=== PATIENT | female | born 2000 | race Hispanic/Latino ===

== ENCOUNTER 2022-06-16 17:44 | Emergency (ER) | payer OTHER | END 2022-06-16 18:38 | disposition home or self-care (01) | LOC: CSHERS 17:44 | DX: H66.91 Otitis media, unspecified, right ear (principal) | CPT/HCPCS: 99282 ==

== ENCOUNTER 2022-07-23 04:57 | Inpatient (IN) | payer OTHER ==
[2022-07-23] MEDS ORDERED: hydrALAZINE 20 MG/ML VIAL SLOW IVP PRN ×2 (05:07→10:07)
[2022-07-23] MEDS ORDERED: Bicitra 30 ML UDCUP PO PRN (05:07)
[2022-07-23] MEDS ORDERED: Promethazine HCl 25 MG/ML VIAL IM PRN ×3 (05:07→10:07)
[2022-07-23] MEDS ORDERED: Famotidine/PF 20 mg/2ml Vial SLOW IVP PRN (05:07)
[2022-07-23] MEDS ORDERED: Ondansetron PF 4 MG/2 ML Vial IVP PRN ×3 (05:07→10:07)
[2022-07-23] MEDS ORDERED: CEFAZOLIN 2 GM in Sodium Chloride 0.9% 100 ML IVPB SCH (05:07)
[2022-07-23] MEDS ORDERED: Lactated Ringer's 1,000 ML IV SCH (05:07)
[2022-07-23 05:33] VITALS: BMI 41.8
[2022-07-23 06:16] LABS: SARS-CoV-2 NAA Rapid Test Not Detected (NotDetected)
[2022-07-23 06:17] LABS: Hemoglobin 9.8 g/dL (12.0-15.5); Mean Corpuscular HGB CONC 32.1 g/dL (32.0-36.0); Mean Corpuscular Hemoglobin 24.9 pg (27.0-33.0); Mean Corpuscular Volume 77.4 fl (81.6-98.3); Mean Platelet Volume 10.1 fl (7.4-10.4); Platelet Count 302 10x3/uL (150-450); RBC Distribution Width 14.2 % (11.5-14.5); Red Blood Cell (RBC) Count 3.94 10x6/uL (3.90-5.03); White Blood Cell (WBC) Count 9.8 10x3/uL (3.5-10.5)
[2022-07-23 06:50] LABS: Syphilis Antibody Nonreactive (Nonreactive); Syphilis Antibody Index 0.04 S/CO (<1.00 Non-Reactive)
[2022-07-23] MEDS ORDERED: HYDROmorphone 2 MG/ML VIAL SLOW IVP PRN (06:50)
[2022-07-23] MEDS ORDERED: Naloxone HCl 0.4 mg/ml Vial IVP PRN ×2 (06:50)
[2022-07-23] MEDS ORDERED: Naloxone HCl 0.4 mg/ml Vial IV PRN (06:50)
[2022-07-23] MEDS ORDERED: Fentanyl 100 MCG/2 ML VIAL SLOW IVP PRN (06:50)
[2022-07-23] MEDS ORDERED: Moisturizing Cream (Eucerin) 113 GM JAR TOP PRN (06:50)
[2022-07-23] MEDS ORDERED: Promethazine HCl 25 MG SUPP PR PRN (06:50)
[2022-07-23] MEDS ORDERED: Ondansetron HCl/PF 4 MG/2 ML Vial IVP PRN (06:50)
[2022-07-23] MEDS ORDERED: Meperidine HCl/PF 25 MG/ML VIAL SLOW IVP PRN (06:50)
[2022-07-23] MEDS ORDERED: diphenhydrAMINE 50 MG/ML VIAL IVP PRN (06:50)
[2022-07-23] MEDS ORDERED: Ketorolac Tromethamine 30 MG/ML VIAL IVP PRN (06:50)
[2022-07-23 06:52] LABS: HBSAg Index 0.16 S/CO (0-0.99); Hep B Surf Ag Non-Reactive S/CO (NonReactive)
[2022-07-23] MEDS ORDERED: Fentanyl 100 MCG/2 ML VIAL ONE (06:53)
[2022-07-23] MEDS ORDERED: Morphine PF 10 MG/10 ML VIAL ONE (06:53)
[2022-07-23] MEDS ORDERED: Phenylephrine 10 MG/ML VIAL ONE (06:53)
[2022-07-23] MEDS ORDERED: Dexamethasone 4 mg/ml Vial ONE (06:53)
[2022-07-23] MEDS ORDERED: Ondansetron PF 4 MG/2 ML Vial ONE (06:53)
[2022-07-23] MEDS ORDERED: Oxytocin 10 UNITS/ML VIAL ONE ×2 (06:54→08:43)
[2022-07-23] MEDS ORDERED: Communication Order-Pharmacy FS SCH (07:00)
[2022-07-23] MEDS ORDERED: Ketorolac Tromethamine 30 MG/ML VIAL IVP SCH (07:00)
[2022-07-23] MEDS ORDERED: Ketorolac Tromethamine 30 MG/ML VIAL ONE (08:39)
[2022-07-23] MEDS ORDERED: Butorphanol Tartrate 1 MG/ML VIAL ONE (09:03)
[2022-07-23] MEDS ORDERED: Bisacodyl 10 MG SUPP PR PRN (10:07)
[2022-07-23] MEDS ORDERED: HYDROcodone/Acetaminophen 5/325 mg Tablet PO PRN (10:07)
[2022-07-23] MEDS ORDERED: diphenhydrAMINE 25 MG CAP PO PRN (10:07)
[2022-07-23] MEDS ORDERED: Boostrix 0.5 ML (Tdap) VIAL (>/=7 yrs of age) IM ONE (10:07)
[2022-07-23] MEDS ORDERED: Lanolin Ointment 7 GM TUBE TOP PRN (10:07)
[2022-07-23] MEDS ORDERED: Prenatal Vitamin 1 TAB PO SCH (10:15)
[2022-07-23] MEDS ORDERED: Docusate 100 MG CAP PO SCH (10:15)
[2022-07-23] MEDS ORDERED: Ferrous Sulfate 325 MG TAB PO SCH (10:15)
[2022-07-23] MEDS: Ketorolac Tromethamine 30 MG/ML VIAL IVP SCH ×2 (13:41→20:43)
[2022-07-23] MEDS: HYDROcodone/Acetaminophen 5/325 mg Tablet PO PRN ×2 (16:31→21:34)
[2022-07-23] MEDS: Docusate 100 MG CAP PO SCH (20:43)
[2022-07-23] MEDS: Ferrous Sulfate 325 MG TAB PO SCH (20:44)
[2022-07-23] MEDS: Simethicone Chewable 80 MG TAB PO PRN (20:44)
[2022-07-24] MEDS: HYDROcodone/Acetaminophen 5/325 mg Tablet PO PRN ×5 (02:26→20:35)
[2022-07-24] MEDS: Ketorolac Tromethamine 30 MG/ML VIAL IVP SCH ×2 (02:28→08:12)
[2022-07-24 04:46] LABS: Hemoglobin 8.5 g/dL (12.0-15.5); Mean Corpuscular HGB CONC 31.8 g/dL (32.0-36.0); Mean Corpuscular Hemoglobin 24.6 pg (27.0-33.0); Mean Corpuscular Volume 77.4 fl (81.6-98.3); Mean Platelet Volume 10.6 fl (7.4-10.4); Platelet Count 256 10x3/uL (150-450); RBC Distribution Width 14.2 % (11.5-14.5); Red Blood Cell (RBC) Count 3.45 10x6/uL (3.90-5.03); White Blood Cell (WBC) Count 12.3 10x3/uL (3.5-10.5)
[2022-07-24] MEDS: Docusate 100 MG CAP PO SCH ×2 (08:13→20:35)
[2022-07-24] MEDS: Ferrous Sulfate 325 MG TAB PO SCH ×2 (08:13→20:35)
[2022-07-24] MEDS: Prenatal Vitamin 1 TAB PO SCH (08:13)
[2022-07-24] MEDS: Ibuprofen 800 MG TAB PO SCH ×2 (13:36→22:27)
[2022-07-24] MEDS: Simethicone Chewable 80 MG TAB PO PRN (20:35)
[2022-07-25] MEDS: HYDROcodone/Acetaminophen 5/325 mg Tablet PO PRN ×3 (01:03→17:20)
[2022-07-25] MEDS: Ibuprofen 800 MG TAB PO SCH ×3 (06:34→22:48)
[2022-07-25] MEDS: Prenatal Vitamin 1 TAB PO SCH (08:34)
[2022-07-25] MEDS: Ferrous Sulfate 325 MG TAB PO SCH ×2 (08:35→20:38)
[2022-07-25] MEDS: Docusate 100 MG CAP PO SCH ×2 (08:35→20:38)
[2022-07-25] MEDS: Simethicone Chewable 80 MG TAB PO PRN (08:40)
[2022-07-26] MEDS: Ibuprofen 800 MG TAB PO SCH (05:29)
[2022-07-26] MEDS: Docusate 100 MG CAP PO SCH (07:52)
[2022-07-26] MEDS: Prenatal Vitamin 1 TAB PO SCH (07:52)
[2022-07-26] MEDS: Ferrous Sulfate 325 MG TAB PO SCH (07:52)
[2022-07-26 08:07] VITALS: BP 125/71; TEMP 98.8
== END 2022-07-26 12:15 | disposition home or self-care (01) | DRG 788 ==
LOC: EEVIPCON 04:57 → CSHLD 04:57 → CSHPP 10:39
PROVIDERS: ADMIT Family Medicine; ATTEND Family Medicine
PROC: 10D00Z1 Extraction of Products of Conception, Low, Open Approach (ICD-10-PCS; principal; 2022-07-23)
DX: O34.211 Maternal care for low transverse scar from previous cesarean delivery (principal); Z20.822 Contact with and (suspected) exposure to COVID-19; Z3A.39 39 weeks gestation of pregnancy; Z37.0 Single live birth; N73.6 Female pelvic peritoneal adhesions (postinfective); O99.892 Other specified diseases and conditions complicating childbirth; D64.9 Anemia, unspecified; O99.02 Anemia complicating childbirth; N99.4 Postprocedural pelvic peritoneal adhesions
CPT/HCPCS: 36415; 51702; 85027; 86780; 86850; 86900; 86901; 87340; J1100; J1200; J1885; J2274; J2370; J2405; J2590; J3010; J3490; S0028; U0002

== ENCOUNTER 2023-04-26 20:16 | Emergency (ER) | payer OTHER ==
[2023-04-26] MEDS ORDERED: Ondansetron PF 4 MG/2 ML Vial ONE (21:16)
[2023-04-26 21:32] LABS: Bilirubin Neg (Negative); Blood, Urine 10 (Negative); Clarity Clear (Clear); Glucose, Urine (Dipstick) Normal (Negative); Ketone, Urine 150 mg/dL (Negative); Leukocyte 100 (Negative); Nitrite Negative (Negative); Protein, Urine (Dipstick) Negative (Neg-Trace); Specific Gravity, Urine 1.025 (1.005-1.030); Urobilinogen Normal mg/dL (Less than 2)
[2023-04-26 21:43] LABS: #Eosinphils 0.1 10x3/uL (0.0-0.5); #Monocytes 0.6 10x3/uL (0.0-1.1); #Neutrophils 6.7 10x3/uL (1.5-8.4); %Basophils 0.4 % (0.0-2.0); %Eosinophils 0.8 % (0.0-6.0); %Monocytes 5.7 % (0.0-10.0); %Neutrophils 63.8 % (40.0-75.0); Hemoglobin 11.7 g/dL (12.0-15.5); Mean Corpuscular HGB CONC 33.4 g/dL (32.0-36.0); Mean Corpuscular Hemoglobin 27.2 pg (27.0-33.0); Mean Corpuscular Volume 81.4 fl (81.6-98.3); Mean Platelet Volume 8.9 fl (7.4-10.4); Platelet Count 330 10x3/uL (150-450); RBC Distribution Width 14.6 % (11.5-14.5); White Blood Cell (WBC) Count 10.5 10x3/uL (3.5-10.5)
[2023-04-26 21:44] LABS: ALT (SGPT) 10 U/L (8-55); AST (SGOT) 14 U/L (5-34); Albumin 3.7 g/dL (3.5-5.0); Alkaline Phosphatase 59 U/L (40-110); Anion Gap 14 mmol/L (10-20); BUN (Urea Nitrogen) 7 mg/dL (7.0-18.7); Bilirubin, Total 0.5 mg/dL (0.2-1.2); Calc. Creatinine Clearance 0 mL/min (70-130); Calcium 8.5 mg/dL (7.8-10.44); Carbon Dioxide 19 mmol/L (22-29); Chloride 107 mmol/L (98-107); Estimated GFR 127; Globulin 2.4 g/dL (2.4-3.5); Glucose 86 mg/dL (70-105); Potassium 3.8 mmol/L (3.5-5.1); Protein, Total 6.1 g/dL (6.0-8.3); Sodium 136 mmol/L (136-145)
[2023-04-26 21:55] LABS: Bacteria/HPF 1+ HPF (None Seen); CAUTI Indications for Culture Pregnancy; RBC/HPF 0-3 HPF (0-3); Squamous Epithelial 0-3 HPF (0-3); Urine Culture Reflex Yes Yes
[2023-04-26] MEDS ORDERED: Metoclopramide HCl 10 MG/2 ML VIAL ONE (22:43)
== END 2023-04-26 23:46 | disposition home or self-care (01) ==
LOC: CSHERS 20:16
DX: O23.41 Unspecified infection of urinary tract in pregnancy, first trimester (principal); N39.0 Urinary tract infection, site not specified; O21.9 Vomiting of pregnancy, unspecified; O99.281 Endocrine, nutritional and metabolic diseases complicating pregnancy, first trimester; E86.0 Dehydration; Z3A.01 Less than 8 weeks gestation of pregnancy
CPT/HCPCS: 36415; 80053; 81001; 85025; 87086; 96374; 96375; J2405; J2765

== ENCOUNTER 2023-05-27 21:53 | Emergency (ER) | payer OTHER ==
[2023-05-27 23:01] LABS: #Eosinphils 0.1 10x3/uL (0.0-0.5); #Monocytes 0.6 10x3/uL (0.0-1.1); #Neutrophils 6.2 10x3/uL (1.5-8.4); %Basophils 0.3 % (0.0-2.0); %Eosinophils 1.1 % (0.0-6.0); %Lymphocytes 28.7 % (18.0-47.0); %Monocytes 6.2 % (0.0-10.0); %Neutrophils 63.4 % (40.0-75.0); Hematocrit 34.1 % (34.9-44.5); Hemoglobin 11.4 g/dL (12.0-15.5); Mean Corpuscular HGB CONC 33.4 g/dL (32.0-36.0); Mean Corpuscular Hemoglobin 27.5 pg (27.0-33.0); Mean Corpuscular Volume 82.2 fl (81.6-98.3); Mean Platelet Volume 8.9 fl (7.4-10.4); Platelet Count 344 10x3/uL (150-450); RBC Distribution Width 13.2 % (11.5-14.5); Red Blood Cell (RBC) Count 4.15 10x6/uL (3.90-5.03); White Blood Cell (WBC) Count 9.8 10x3/uL (3.5-10.5)
[2023-05-27 23:23] LABS: ALT (SGPT) 8 U/L (8-55); AST (SGOT) 15 U/L (5-34); Albumin 3.8 g/dL (3.5-5.0); Alkaline Phosphatase 61 U/L (40-110); Anion Gap 15 mmol/L (10-20); BUN (Urea Nitrogen) 7 mg/dL (7.0-18.7); Bilirubin, Total 0.4 mg/dL (0.2-1.2); Calc. Creatinine Clearance 0 mL/min (70-130); Calcium 8.9 mg/dL (7.8-10.44); Carbon Dioxide 17 mmol/L (22-29); Chloride 107 mmol/L (98-107); Estimated GFR 129; Globulin 2.7 g/dL (2.4-3.5); Glucose 88 mg/dL (70-105); Potassium 3.7 mmol/L (3.5-5.1); Protein, Total 6.5 g/dL (6.0-8.3); Sodium 135 mmol/L (136-145)
[2023-05-27] MEDS ORDERED: Ondansetron PF 4 MG/2 ML Vial ONE (23:39)
[2023-05-28] MEDS ORDERED: Ondansetron PF 4 MG/2 ML Vial ONE (01:23)
[2023-05-28 01:36] LABS: Bilirubin Neg (Negative); Blood, Urine 25 (Negative); Clarity Clear (Clear); Glucose, Urine (Dipstick) Normal (Negative); Ketone, Urine 5 mg/dL (Negative); Leukocyte Negative (Negative); Nitrite Negative (Negative); Protein, Urine (Dipstick) Negative (Neg-Trace)
[2023-05-28 01:58] LABS: RBC/HPF 0-3 HPF (0-3)
[2023-05-28 01:59] LABS: Bacteria/HPF None Seen HPF (None Seen); CAUTI Indications for Culture Pelvic or flank pain; Squamous Epithelial None Seen HPF (0-3); Urine Culture Reflex No No; WBC/HPF None Seen HPF (0-3)
[2023-05-28 16:33] LABS: GC by PCR, EndoCx Swab Not Detected (NotDetected)
== END 2023-05-28 01:47 | disposition home or self-care (01) ==
LOC: CSHERS 21:53
DX: O20.0 Threatened abortion (principal); Z3A.10 10 weeks gestation of pregnancy
CPT/HCPCS: 76801; 80053; 81001; 82274; 84702; 85025; 86900; 86901; 87480; 87510; 87591; 87660; 96374; J2405

== ENCOUNTER 2023-08-16 14:42 | Outpatient (CLI) | payer OTHER | END 2023-08-16 14:43 | disposition home or self-care (01) | LOC: CSHULT 14:42 | PROVIDERS: ATTEND Nurse Practitioner Women's Health | DX: O09.892 Supervision of other high risk pregnancies, second trimester (principal) | CPT/HCPCS: 76805 ==

== ENCOUNTER 2025-05-11 05:26 | Emergency (ER) | payer OTHER, SELFPAY ==
[2025-05-11] MEDS ORDERED: Acetaminophen 500 MG TAB ONE (05:55)
[2025-05-11 06:07] LABS: Glucose, Urine (Dipstick) Normal (Negative); Leukocyte Negative (Negative); Protein, Urine (Dipstick) 30 mg/dl (Neg-Trace); Specific Gravity, Urine 1.015 (1.005-1.030)
[2025-05-11 06:09] LABS: Pregnancy Test - Urine (BHCG) Negative (Negative); Pregu Control Background? CLEAR/WHITE (CLR/WHITE); Pregu Control Bar Appear? YES (CONTROL BAR)
[2025-05-11 06:40] LABS: Bacteria/HPF None Seen HPF (None Seen); CAUTI Indications for Culture Fever or rigors; WBC/HPF 0-3 HPF (0-3)
[2025-05-11 06:41] LABS: Urine Culture Reflex No No
[2025-05-11] MEDS ORDERED: Dexamethasone 4 MG TAB ONE (07:03)
== END 2025-05-11 06:52 | disposition home or self-care (01) ==
LOC: CSHERS 05:26
DX: B34.9 Viral infection, unspecified (principal)
CPT/HCPCS: 81001; 81025; 87428; 99283; J8540